=== PATIENT | female | born 1945 | race Caucasian/White ===

== ENCOUNTER → 2024-02-25 09:44 | Outpatient (REF) | payer BC, SELFPAY ==
[2024-02-25 13:08] LABS: % Basophils 0.6 % (0-2); % Eosinophils 2.4 % (0-6); % Immature Granulocytes 0.2 % (0-0.5); % Lymphocytes 35.7 % (20.5-51.1); % Monocytes 11.1 % (1.7-9.3); Absolute Eosinophils 0.1 10^3/uL (0-0.7); Absolute Lymphocytes 1.8 10^3/uL (1.2-3.4); Absolute Monocytes 0.6 10^3/uL (0.1-0.6); Absolute Neutrophils 2.5 10^3/uL (1.4-6.5); Hematocrit 39.9 % (37.0-47.0); Hemoglobin 13.2 g/dL (12.0-16.0); Mean Corp Hgb Conc. 33.1 g/dL (33.0-37.0); Mean Corpuscular Hgb 30.8 pg (27.0-31.0); Mean Platelet Volume 9.6 fL (7.4-10.4); Nucleated Red Blood Cells % 0 %; Platelet Count 352 10^3/uL (130-400); Red Blood Cell Count 4.29 10^6/uL (4.20-5.40); Red Cell Dist. Width 12.5 % (11.5-14.5)
[2024-02-25 13:42] LABS: ALT (SGPT) 37 U/L (0-35); AST (SGOT) 31 U/L (14-36); Albumin 4.1 g/dl (3.5-5.0); Alkaline Phosphatase 83 U/L (38-126); Blood Urea Nitrogen 9 mg/dl (7-17); Calcium 9.3 mg/dl (8.4-10.2); Carbon Dioxide 28 mmol/L (22-30); Chloride 103 mmol/L (98-107); Glucose 96 mg/dl (70-99); HDL Cholesterol 74 mg/dl; LDL Cholesterol, Calculated 67 mg/dl; Potassium 4.6 mmol/L (3.5-5.1); Sodium 134 mmol/L (135-145); Total Bilirubin 0.6 mg/dl (0.2-1.3); Total Cholesterol 151 mg/dl (50-199); Total Protein 6.4 g/dl (6.3-8.2); Triglyceride 54 mg/dl (10-149); Very Low Density Lipoprotein 10 mg/dl (0-30); eGFR > 60.00
== END ==
LOC: HWLAB 09:44
PROVIDERS: ATTENDING PHYSICIAN Internal Medicine
DX: E78.2 Mixed hyperlipidemia (principal); I10 Essential (primary) hypertension; Z00.00 Encounter for general adult medical examination without abnormal findings
CPT/HCPCS: 36415; 80053; 80061; 85025

== ENCOUNTER → 2024-03-02 18:18 | Outpatient (REF) | payer BC, SELFPAY | LOC: MRI 3T 18:18 | PROVIDERS: ATTENDING PHYSICIAN Specialist; FAMILY PHYSICIAN Internal Medicine | DX: M48.062 Spinal stenosis, lumbar region with neurogenic claudication (principal) | CPT/HCPCS: 72148 ==

== ENCOUNTER → 2024-06-08 13:12 | Outpatient (REF) | payer BC, SELFPAY | LOC: HWWDC 13:12 | PROVIDERS: ATTENDING PHYSICIAN Obstetrics & Gynecology; FAMILY PHYSICIAN Internal Medicine | DX: Z12.31 Encounter for screening mammogram for malignant neoplasm of breast (principal) | CPT/HCPCS: 77063; 77067 ==

== ENCOUNTER → 2024-07-13 10:57 | Outpatient (REF) | payer BC, SELFPAY | LOC: HWRAD 10:57 | PROVIDERS: ATTENDING PHYSICIAN Internal Medicine; REFERRING PHYSICIAN Specialist | DX: M79.671 Pain in right foot (principal) | CPT/HCPCS: 73630 ==

== ENCOUNTER → 2024-07-17 07:31 | Outpatient (REF) | payer BC, SELFPAY | LOC: EMG 07:31 | PROVIDERS: ATTENDING PHYSICIAN Internal Medicine; REFERRING PHYSICIAN Specialist | DX: R26.89 Other abnormalities of gait and mobility (principal); M43.16 Spondylolisthesis, lumbar region; R20.0 Anesthesia of skin | CPT/HCPCS: 95886; 95910 ==

== ENCOUNTER → 2024-09-27 09:09 | Outpatient (REF) | payer BC, SELFPAY ==
[2024-09-27 12:41] LABS: ALT (SGPT) 32 U/L (0-35); AST (SGOT) 30 U/L (14-36); Albumin 3.9 g/dl (3.5-5.0); Alkaline Phosphatase 84 U/L (38-126); Direct Bilirubin 0.1 mg/dl (0.0-0.4); HDL Cholesterol 62 mg/dl; LDL Cholesterol, Calculated 80 mg/dl; Total Bilirubin 0.6 mg/dl (0.2-1.3); Total Cholesterol 156 mg/dl (50-199); Total Protein 6.3 g/dl (6.3-8.2); Triglyceride 70 mg/dl (10-149); Very Low Density Lipoprotein 14 mg/dl (0-30)
== END ==
LOC: HWLAB 09:09
PROVIDERS: ATTENDING PHYSICIAN Internal Medicine
DX: E78.2 Mixed hyperlipidemia (principal); I10 Essential (primary) hypertension
CPT/HCPCS: 36415; 80061; 80076

== ENCOUNTER → 2024-10-03 11:54 | Outpatient (REF) | payer BC, SELFPAY | LOC: HWCARD 11:54 | PROVIDERS: ATTENDING PHYSICIAN Internal Medicine | DX: R00.1 Bradycardia, unspecified (principal) | CPT/HCPCS: 93005 ==

== ENCOUNTER → 2024-10-24 07:35 | Outpatient (REF) | payer BC, SELFPAY | LOC: DHCBC/DCA 07:35 | PROVIDERS: ATTENDING PHYSICIAN Internal Medicine; REFERRING PHYSICIAN Internal Medicine Cardiovascular Disease | DX: R94.31 Abnormal electrocardiogram [ECG] [EKG] (principal); I44.0 Atrioventricular block, first degree | CPT/HCPCS: 78452; 93017; A9500; J2785 ==

== ENCOUNTER 2024-12-14 19:25 | Emergency (ER) | payer BC, SELFPAY ==
[2024-12-14 19:30] VITALS: BP 160/79
[2024-12-14 19:49] LABS: % Basophils 0.3 % (0-2); % Eosinophils 0.9 % (0-6); % Immature Granulocytes 0.2 % (0-0.5); % Lymphocytes 24.5 % (20.5-51.1); % Monocytes 7.4 % (1.7-9.3); % Neutrophils 66.7 % (42.2-75.2); Absolute Eosinophils 0.1 10^3/uL (0-0.7); Absolute Lymphocytes 2.2 10^3/uL (1.2-3.4); Absolute Monocytes 0.7 10^3/uL (0.1-0.6); Absolute Neutrophils 5.9 10^3/uL (1.4-6.5); Hematocrit 41.2 % (37.0-47.0); Hemoglobin 13.9 g/dL (12.0-16.0); Mean Corp Hgb Conc. 33.7 g/dL (33.0-37.0); Mean Corpuscular Hgb 30.8 pg (27.0-31.0); Mean Corpuscular Volume 91.2 fL (81.0-99.0); Mean Platelet Volume 8.7 fL (7.4-10.4); Nucleated Red Blood Cells % 0 %; Platelet Count 304 10^3/uL (130-400); Red Blood Cell Count 4.52 10^6/uL (4.20-5.40); White Blood Cell Count 8.8 10^3/uL (4.8-10.8)
[2024-12-14 20:03] LABS: ALT (SGPT) 32 U/L (0-35); AST (SGOT) 29 U/L (14-36); Albumin 4.4 g/dl (3.5-5.0); Alkaline Phosphatase 94 U/L (38-126); Blood Urea Nitrogen 12 mg/dl (7-17); Calcium 9.3 mg/dl (8.4-10.2); Carbon Dioxide 28 mmol/L (22-30); Chloride 95 mmol/L (98-107); Glucose 163 mg/dl (70-99); Potassium 4.3 mmol/L (3.5-5.1); Sodium 131 mmol/L (135-145); Total Bilirubin 0.5 mg/dl (0.2-1.3); Total Protein 6.9 g/dl (6.3-8.2); eGFR > 60.00
[2024-12-14 23:49] VITALS: BP 158/92
[2024-12-14 23:51] VITALS: BMI 26.5
[2024-12-15] VITALS: BP 152/82
--- NOTE | 2024-12-15 01:22 | ED.CVA ---
History of Present Illness
General
Chief Complaint: CVA/TIA Symptoms
Source: patient and family
Exam Limitations: none
Time Seen by Provider: 12/15/24 00:11
Nursing documentation reviewed up to this point in time: agreed with
Onset of Stroke Symptoms
Onset of symptoms known: Yes
Date of onset of symptoms: 12/14/24
History of Present Illness
History of Present Illness:
79-year-old female with a past medical history of migraines, hypertension, hyperlipidemia, GERD who presents to the emergency room for evaluation after an episode of expressive aphasia. Patient reports that this afternoon shortly after 4 PM she
noticed that she was getting one of her typical migraines which involves 'floating lines' in her visual field followed by a headache. She says that she developed headache as typical however when she went to tell her son that she was having one of
her typical ocular migraines she was having trouble expressing herself�her son says that she could say most words but when she tried to say the words ocular migraine she could not get them out and she became very frustrated. Her son tried to get
her to name other things and she was having trouble naming things (he says that he asked her to name a bird and she could not say the word 'cardinal', asked her to name objects and around the house for example she could not say 'coaster'). It
sounds like this entire episode lasted for about 15 minutes and then her symptoms resolved and she is now asymptomatic. She says her headache lasted for a bit longer than these neurologic symptoms but this too seems to have resolved. She says she
has never had a migraine associated with the symptoms and so she came to the ER to be assessed. She did not have any loss of vision, weakness or numbness in her extremities. She denies any other complaints has otherwise been in her normal state of
health. She denies any prior history of stroke.
Past History
Past History
ED Past Medical History: GERD, HTN and Hypercholesterolemia
ED Past Surgical History: Orthopedic
Social History
Tobacco: Former smoker
Alcohol: Occasional
Drug: None
Personal:
Living: with family
Family History
Family History: Other (brother with a DVT)
Review of Systems
Review of Systems
All Other Systems: ROS reviewed and negative except as documented in HPI and ROS
Constitutional: Denies fever or chills
Respiratory: Denies trouble breathing
Cardiac: Denies chest pain
ABD/GI: Denies abdominal pain, nausea or vomiting
: Denies flank pain
Musculoskeletal: Denies neck pain or back pain
Neurological: Reports headache and other (Speech disturbance); Denies weakness or numbness
Phy Exam
Physical Exam
Physical Exam:
General: Awake, alert, oriented x3; no acute distress
Head: Normocephalic, atraumatic
Eyes: Conjunctiva normal, EOMI, pupils equal round and reactive to light bilaterally
Throat: Airway intact, handling secretions
Neck: Trachea midline, supple without meningismus
Lungs: Clear to auscultation bilaterally, no wheezing, rales, rhonchi
Heart: Regular rate and rhythm, faint systolic murmur
Abd: Soft, non distended, nontender
Neuro: Cranial nerves intact 2 through 12, speech fluid no dysarthria or aphasia, no limb ataxia, motor and sensory intact proximally and distally in the upper and lower extremities
Extremities: No edema in extremities, equal pulses in all extremities
Scores
NIH Stroke Score
Level of Consciousness: 0 - Alert
LOC Questions: 0-Answers both correctly
LOC Commands: 0-Performs both correctly
Best Horizontal Gaze: 0-Normal
Visual [place]: 0=Normal, no visual loss
Facial Palsy: 0=Normal, symmetrical
Motor - Right Arm: 0=No drift 10 seconds
Motor - Left Arm: 0=No drift 10 seconds
Motor - Right Le-No drift 5 seconds
Motor - Left Le-No drift 5 seconds
Limb Ataxia: 0-Absent
Sensation: 0-Normal
Best Language: 0-No aphasia
Dysarthria: 0-Normal
Extinction and Inattention: 0-No abnormality
Total Score:: 0
Heart Failure Risk
Heart Failure Risk Score: Not Applicable
Heart Score for Chest Pain Patients
STEMI patient?: Not applicable
Withdrawal Assessment of Alcohol
Withdrawal Assessment Completed?: Not applicable
Course
Orders/Labs/Results
Orders:
Orders
12/14/24 19:34
CT Head W/o Iv Contrast Urgent
Comment:
Reason For Exam: episode of expressive asphasia
12/14/24 19:38
Complete Blood Count/With Diff Urgent
Comprehensive Metabolic Panel Urgent
12/15/24 01:03
CT Head & Neck Angio W/wo IV Urgent
Comment:
Reason For Exam: TIA--aphasia
12/15/24 02:52
Electrocardiogram (*1) Urgent
Reason for Study: TIA/Stroke
EKG- Treatment ONCE
Abnormal Lab Results
12/14/24
19:38
Absolute Monos (auto) 0.7 H 10^3/uL
(0.1-0.6)
Sodium 131 L mmol/L
(135-145)
Chloride 95 L mmol/L
(98-107)
Glucose 163 H mg/dl
(70-99)
12/14/24 19:38
12/14/24 19:38
Vital Signs
Initial and Last Documented VS:
Initial Vital Signs
Temp Pulse Resp BP Pulse Ox
36.6 C 88 16 160/79 99
12/14/24 19:30 12/14/24 19:30 12/14/24 19:30 12/14/24 19:30 12/14/24 19:30
Last Documented Vital Signs
Temp Pulse Resp BP Pulse Ox
36.6 C 88 16 152/82 97
12/14/24 19:30 12/14/24 19:30 12/14/24 19:30 12/15/24 00:00 12/15/24 00:00
MDM/Problems Addressed
Differential Diagnosis Includes:
TIA, complex migraine, seizure, anxiety/panic
MDM/Problems Addressed:
79-year-old female presents to the emergency room with her son for evaluation after an episode of expressive aphasia. She says she had one of her typical ocular migraines/migraine with aura however subsequently developed expressive aphasia that
lasted for about 15 minutes. All of her symptoms have resolved and she is now asymptomatic. Vitals and exam as above. She had lab work sent in triage including a CBC and a CMP�no clinically significant abnormalities. She had a CT head in triage
which was negative. Certainly by history this sounds like a complex migraine however she does have risk factors for TIA/stroke. I had a long discussion with the patient and her son�I explained that the standard of care and evaluation of TIA would
be for admission for serial exams and neurology consultation; I explained that although my suspicion is that this is a migraine we cannot rule out TIA 100%. I did review her ABCD2 score with her which would be 4 placing her in moderate risk
category if this is a TIA. After long discussion about risks, benefits, standards of care ultimately using shared decision making patient wishes to go home she does not want to be admitted to the hospital�she would like to follow-up with neurology
and with her primary doctor as an outpatient. I do not think this is an unreasonable plan but I do think we should do carotid imaging prior to disposition home. Will send for a CTA and reassess.
CTA head and neck showed no critical stenosis or LVO. Patient remains awake and alert, asymptomatic and she still wishes to go home from the hospital. Will discharge in keeping with her wishes with neurology referral and plan for PCP follow-up. I
did explain to her that if she has any recurrence of symptoms she must return to the emergency room immediately. Will start on aspirin.
Chronic conditions affecting care:
Hypertension and hyperlipidemia
Acute Exacerbation and/or Progression of Chronic Illness:
Acutely hypertensive
Acute Exacerbation and/or Progression of Chronic Illness: HTN
*Radiology
Radiology exam reviewed: radiology read reviewed
*Pulse Oximetry
Patient hypoxic: no
*EKG
Interpreted by ED Provider?: Yes
Heart Rate: 58
Rate: normal
Rhythm: sinus
[place]: left axis deviation
Interval: first degree heart block
QRS Pattern: normal QRS
Ischemia: no ischemia
*Critical Care Note
Total Time (30-74mins, 75-104mins- exclusive of procedures): Not Applicable
Data Reviewed
Review of Other/Old Records Reveals: Labs and Records
Source: patient, records and family
Patient Management
Social determinants of health affecting care: Strong social support
Escalation/DeEscalation of care consider admission/obs:
Recommended admission but using shared decision making as described above patient prefers to be discharged
ED Attending Note
-
Portions of this chart may have been created with voice recognition software.� Occasional wrong word or��sound alike� substitutions may have occurred due to the inherent limitations of voice recognition software.
Discharge Plan
Departure
Patient Disposition: Home (Routine Discharge)
Date of Disposition: 12/15/24
Time of Disposition: 02:48
Patient with high blood pressure during this ER visit?: Yes
Discharge Problem:
Migraine
Instructions: Transient Ischemic Attack (DC), Migraine in adults
Prescriptions:
New
aspirin 81 mg tablet,delayed release (DR/EC)
81 mg PO DAILY Qty: 30 0RF
No Action
lisinopril 20 MG tablet
20 mg PO DAILY
simvastatin 40 MG tablet
40 mg PO QPM
cyanocobalamin (vitamin B-12) 1,000 MCG tablet
1,000 mcg PO DAILY
tramadol 50 MG tablet
100 mg PO TID
lorazepam 0.5 MG tablet
0.5 mg PO HS
simvastatin 20 MG tablet
40 mg PO QPM
gabapentin 300 MG capsule
300 mg PO TID
omeprazole magnesium [Prilosec OTC] 20 MG tablet,delayed release (DR/EC)
20 mg PO DAILY
omega 0-yoh-cbk-fish oil [Fish Oil] 1 EACH capsule
1 ea PO DAILY
Fiber
2 tab PO DAILY
Multivitamin
1 tab PO DAILY
sennosides [senna] 1 TABLET tablet
2 tab PO PRN PRN (Reason: constipation)
acetaminophen [Tylenol Extra Strength] 500 MG tablet
1,000 mg PO Q6HPRN PRN (Reason: mild pain) Qty: 1 0RF
oxycodone 5 MG tablet
5 mg PO Q4HPRN PRN (Reason: breakthrough/severe pain) Qty: 7 0RF
Referrals:
Anahy Juarez MD [Non-Admitting Privileges] - Call in 1-3 days for appt (Neurology)
Eh Rust MD [Active] - Call in 1-3 days for appt (Neurology)
Michael Hernandez MD [Family Provider] -
Eric Em MD [Active] - Call in 1-3 days for appt (Neurology)
Activity Restrictions/Additional Instructions:
Thank you for visiting the Emergency Department at [facility].
1. Please schedule a follow up appointment as directed. Call first thing tomorrow morning to make an appointment.
2. If indicated, please take your medications as instructed and indicated on discharge paperwork.
3. If any of your symptoms do not improve, or persist, or become more severe within 6-12 hours, please return to the emergency department for further care.
4. Please return to the emergency department if you develop a headache, neck pain/stiffness, fever greater than 100.4F, chest pain, shortness of breath, persistent nausea, vomiting, slurred speech, difficulty walking, numbness/tingling, weakness,
signs of infection or any other symptoms that are worrisome to you.
Please call [phone] if you have any questions.
Interventions
Interventions:
*Risk Screen - Suicide Last Done: 12/14/24 19:30
*General Assessment Last Done: 12/14/24 19:30
*Neglect/Abuse Screening Last Done: 12/14/24 19:30
ED- Fall Risk Assessment Last Done: 12/15/24 03:12
*ED COVID-19 Vaccine History Last Done: 12/14/24 19:30
*Nursing Disposition Last Done: 12/15/24 03:12
ED- Pulmonary Assessment Last Done: 12/15/24 00:00
ED- Neurological Assessment Last Done: 12/14/24 23:52
ED- Cardiac Assessment Last Done: 12/14/24 23:52
ED Swallowing Screen Last Done: 12/14/24 23:52
Discharge Date and Time
Discharge Date/Time: 12/15/24 03:14
Print Language: ARGENTINE
== END 2024-12-15 03:14 | disposition home or self-care (01) ==
LOC: EMR 19:25
PROVIDERS: Emergency Medicine; EMERGENCY PHYSICIAN Emergency Medicine; FAMILY PHYSICIAN Internal Medicine
DX: G43.909 Migraine, unspecified, not intractable, without status migrainosus (principal); E78.00 Pure hypercholesterolemia, unspecified; I10 Essential (primary) hypertension; K21.9 Gastro-esophageal reflux disease without esophagitis; Z87.891 Personal history of nicotine dependence
CPT/HCPCS: 99284; 70450; 70496; 70498; 80053; 85025; 93005; Q9967

== ENCOUNTER → 2024-12-22 11:35 | Outpatient (REF) | payer BC, SELFPAY ==
[2024-12-22 16:55] LABS: Magnesium 2.2 mg/dl (1.6-2.3)
[2024-12-22 17:27] LABS: TSH Reflex To Free T4 3.43 uIU/ml (0.47-4.68)
[2024-12-22 17:46] LABS: Vitamin B12 655 pg/ml (239-931)
== END ==
LOC: HWLAB 11:35
PROVIDERS: ATTENDING PHYSICIAN Internal Medicine
DX: G60.9 Hereditary and idiopathic neuropathy, unspecified (principal); R25.2 Cramp and spasm
CPT/HCPCS: 36415; 82607; 83735; 84443

== ENCOUNTER → 2024-12-30 10:53 | Outpatient (REF) | payer BC, SELFPAY | LOC: MRI 3T 10:53 | PROVIDERS: ATTENDING PHYSICIAN Specialist; FAMILY PHYSICIAN Internal Medicine | DX: G45.9 Transient cerebral ischemic attack, unspecified (principal) | CPT/HCPCS: 70551 ==

== ENCOUNTER → 2025-03-27 10:11 | Outpatient (REF) | payer BC, SELFPAY ==
[2025-03-27 16:08] LABS: % Basophils 0.6 % (0-2); % Eosinophils 1.5 % (0-6); % Lymphocytes 30.1 % (20.5-51.1); % Monocytes 10.7 % (1.7-9.3); % Neutrophils 57.1 % (42.2-75.2); Absolute Eosinophils 0.1 10^3/uL (0-0.7); Absolute Lymphocytes 1.6 10^3/uL (1.2-3.4); Absolute Monocytes 0.6 10^3/uL (0.1-0.6); Hemoglobin 12.9 g/dL (12.0-16.0); Mean Corp Hgb Conc. 33.9 g/dL (33.0-37.0); Mean Corpuscular Hgb 31.4 pg (27.0-31.0); Mean Corpuscular Volume 92.5 fL (81.0-99.0); Mean Platelet Volume 9.9 fL (7.4-10.4); Nucleated Red Blood Cells % 0 %; Platelet Count 327 10^3/uL (130-400); Red Blood Cell Count 4.11 10^6/uL (4.20-5.40); Red Cell Dist. Width 12.3 % (11.5-14.5); White Blood Cell Count 5.3 10^3/uL (4.8-10.8)
[2025-03-27 16:16] LABS: ALT (SGPT) 29 U/L (0-35); AST (SGOT) 24 U/L (14-36); Albumin 3.8 g/dl (3.5-5.0); Alkaline Phosphatase 100 U/L (38-126); Blood Urea Nitrogen 11 mg/dl (7-17); Calcium 9.4 mg/dl (8.4-10.2); Carbon Dioxide 29 mmol/L (22-30); Chloride 106 mmol/L (98-107); Glucose 114 mg/dl (70-99); HDL Cholesterol 42 mg/dl; LDL Cholesterol, Calculated 78 mg/dl; Potassium 4.4 mmol/L (3.5-5.1); Sodium 140 mmol/L (135-145); Total Bilirubin 0.8 mg/dl (0.2-1.3); Total Cholesterol 133 mg/dl (50-199); Total Protein 6.1 g/dl (6.3-8.2); Triglyceride 68 mg/dl (10-149); Very Low Density Lipoprotein 13 mg/dl (0-30); eGFR > 60.00
== END ==
LOC: HWLAB 10:11
PROVIDERS: ATTENDING PHYSICIAN Internal Medicine
DX: Z00.00 Encounter for general adult medical examination without abnormal findings (principal); E78.2 Mixed hyperlipidemia; I10 Essential (primary) hypertension
CPT/HCPCS: 36415; 80053; 80061; 85025

== ENCOUNTER 2025-04-13 06:13 | Day surgery (SDC) | payer BC, SELFPAY | END 2025-04-13 11:27 | disposition home or self-care (01) | LOC: GI 06:13 | PROVIDERS: ATTENDING PHYSICIAN Specialist | DX: Z12.11 Encounter for screening for malignant neoplasm of colon (principal); K57.30 Diverticulosis of large intestine without perforation or abscess without bleeding; K63.89 Other specified diseases of intestine; Z86.0101 Personal history of adenomatous and serrated colon polyps; Z80.0 Family history of malignant neoplasm of digestive organs | CPT/HCPCS: G0105 ==

== ENCOUNTER → 2025-06-14 12:28 | Outpatient (REF) | payer BC, SELFPAY | LOC: HWWDC 12:28 | PROVIDERS: ATTENDING PHYSICIAN Obstetrics & Gynecology; FAMILY PHYSICIAN Internal Medicine | DX: Z12.31 Encounter for screening mammogram for malignant neoplasm of breast (principal) | CPT/HCPCS: 77063; 77067 ==

== ENCOUNTER → 2025-09-13 09:16 | Outpatient (REF) | payer BC, SELFPAY ==
[2025-09-13 12:34] LABS: ALT (SGPT) 26 U/L (0-35); AST (SGOT) 23 U/L (14-36); Albumin 4.2 g/dl (3.5-5.0); Alkaline Phosphatase 75 U/L (38-126); HDL Cholesterol 74 mg/dl; LDL Cholesterol, Calculated 94 mg/dl; Total Protein 6.9 g/dl (6.3-8.2); Very Low Density Lipoprotein 13 mg/dl (0-30)
[2025-09-13 13:04] LABS: TSH 4.08 uIU/ml (0.47-4.68)
[2025-09-13 13:26] LABS: Glycohemoglobin (HgbA1c) 5.8 % (4.0-5.9)
[2025-09-13 13:40] LABS: Folate > 20.0 ng/ml (2.76-20); Vitamin B12 761 pg/ml (239-931)
[2025-09-13 16:47] LABS: Rheumatoid Agglutinin Less Than 10 IU (<10 IU)
[2025-09-15 05:52] LABS: ANA, IgG Reflex to HEp-2 None Detected (None Detected)
[2025-09-15 09:22] LABS: SSA 52 (Ro)(ENA) Ab, IgG 1 AU/mL (0-40); SSA 60 (Ro)(ENA) Ab, IgG 0 AU/mL (0-40); SSB (La)(ENA) Ab, IgG 0 AU/mL (0-40)
== END ==
LOC: HWLAB 09:16
PROVIDERS: ATTENDING PHYSICIAN Specialist; FAMILY PHYSICIAN Internal Medicine
DX: G60.3 Idiopathic progressive neuropathy (principal); E11.42 Type 2 diabetes mellitus with diabetic polyneuropathy; E03.9 Hypothyroidism, unspecified; E78.2 Mixed hyperlipidemia; I10 Essential (primary) hypertension; E66.3 Overweight
CPT/HCPCS: 36415; 80061; 80076; 82607; 82746; 82784; 83036; 83521; 84155; 84165; 84436; 84443; 86038; 86235; 86255; 86334; 86430

== ENCOUNTER → 2025-10-17 09:34 | Outpatient (REF) | payer BC, SELFPAY | LOC: HWRAD 09:34 | PROVIDERS: ATTENDING PHYSICIAN Obstetrics & Gynecology; FAMILY PHYSICIAN Internal Medicine | DX: Z78.0 Asymptomatic menopausal state (principal) | CPT/HCPCS: 77080 ==